=== PATIENT | female | born 1960 | race Caucasian/White ===

== ENCOUNTER 2020-02-19 09:01 | Outpatient (REF) | payer BC, SELFPAY ==
[2020-02-19 21:31] LABS: Hemoglobin A1C 5.7 % (3.8-5.6)
[2020-02-19 21:41] LABS: Anion Gap 10.6 mmol/L (3-11); BUN 17 mg/dL (7-18); CO2 26.4 mmol/L (21.0-32.0); CREATININE 0.79 mg/dL (0.55-1.02); Calcium 9.2 mg/dL (8.5-10.1); Calculated LDL 77 mg/dL (<100); Chloride 105 mmol/L (98-107); Cholesterol 155 mg/dL (<200); Glucose 105 mg/dL (74-106); HDL Cholesterol 54 mg/dL (40-60); Potassium 4.1 mmol/L (3.5-5.1); Sodium 142 mmol/L (136-145); Triglyceride 123 mg/dL (<150)
== END 2020-02-19 09:21 ==
LOC: NCHCN 09:01
PROVIDERS: PCP Family Medicine; Visit Provider Family Medicine
DX: Z00.00 Encounter for general adult medical examination without abnormal findings (principal); R03.0 Elevated blood-pressure reading, without diagnosis of hypertension; M17.0 Bilateral primary osteoarthritis of knee; H92.02 Otalgia, left ear
CPT/HCPCS: 80048; 80061; 83036

== ENCOUNTER 2022-07-19 17:02 | Outpatient (REF) | payer BC, SELFPAY ==
--- NOTE | 2022-07-19 16:00 | PAPFT_PTH ---
PATIENT: Sujey Lockett LOC: [facility]#:[id number] AGE/SX: 61/F ROOM: RE07/19/[address]: Adrianne Barger : 1960 BED: DIS: 07/19/2022 SPEC #: [id number] RECD: 07/20/22 12:49 STATUS: GREGORY REQ #: [id number] JAKOB: 07/19/22 16:[address]: Adrianne Barger DEPT: [facility] Cytology RECD BY: Lien Benitez Tissues: 1 - CX/ENDOCX FOR PAP SMEARS Procedures: PAP THIN PREP/UVM Screening HPV DNA PROBE Comments: [id number]
== END 2022-07-19 17:03 | disposition home or self-care (01) ==
LOC: NCHCN 17:02
PROVIDERS: PCP Family Medicine; Visit Provider Family Medicine
DX: Z12.4 Encounter for screening for malignant neoplasm of cervix (principal); Z00.00 Encounter for general adult medical examination without abnormal findings; Z11.51 Encounter for screening for human papillomavirus (HPV)
CPT/HCPCS: 88142; 87624

== ENCOUNTER 2023-05-15 18:45 | Outpatient (REF) | payer BC, SELFPAY ==
--- OUTSIDE RECORDS SUMMARY | 2023-05-15 18:47 | XMS_ITS | CCD ---
Author Name Unknown Address [address] [place] [address] [id number] Organization Unknown Address [address] [place] [address] [id number] Care Team Providers Care Forklift Picker Name Role Phone JACQUIE TIDWELL Attending Physician [phone] JACQUIE TIDWELL Rounding (Secondary) Physician [phone] Vital Signs Unknown or Not Available. Allergies Allergy Code Allergy Type Reaction Status SHELLFISH 0 Food allergy NAUSEA/VOMITING ; JUST MUSCLES Active No Known Drug Allergies 0 No known drug allergies Active Procedures Unknown or Not Available. History of Immunizations Unknown or Not Available. Problems Unknown or Not Available. Results Unknown or Not Available. Active Medications Unknown or Not Available. Medications Administered During Visit Unknown or Not Available. Encounters Encounter Diagnosis Diagnosis Code Start Date Artificial knee joint present [id number] Social History Smoking Status Code Start Date End Date Never smoker [id number] Patient Decision Aids Unknown or Not Available. Discharge Instructions You were admitted to [facility] on 07/19/2021 14:05 with a principal diagnosis of Presence of left artificial knee joint You were discharged from [facility] on 07/19/2021 00:00 Should you have any questions prior to discharge, please contact a member of your healthcare team. If you have left the hospital and have any questions, please contact your primary care physician. Chief Complaint and Reason For Visit Unknown or Not Available. Function Status Unknown or Not Available. Plan of Care Unknown or Not Available. Referral/Transition of Care Unknown or Not Available.
--- OUTSIDE RECORDS SUMMARY | 2023-05-15 18:47 | XMS_ITS | CCD ---
Author Name Unknown Address [address] [place] [address] [phone] Organization Unknown Address [address] [place] [address] [phone] Care Team Providers Care Injection Molding Machine Operator Name Role Phone MICHELLE GREENBERG Attending Physician [phone] Vital Signs Unknown or Not Available. Allergies Allergy Code Allergy Type Reaction Status SHELLFISH 0 Food allergy NAUSEA/VOMITING ; JUST MUSCLES Active No Known Drug Allergies 0 No known drug allergies Active Procedures Unknown or Not Available. History of Immunizations Unknown or Not Available. Problems Unknown or Not Available. Results BUN (UREA NITROGEN)* - Colle ct Date/Time: 03/26/2022 11:38 Test Name Code Test Result Test Units Test Ref Rang e BUN 3094-0 17 mg/dL L=6 H=25 CREATININE SERUM - Collect D ate/Time: 03/26/2022 11:38 Test Name Code Test Result Test Units Test Ref Rang e CREATININE 2160-0 0.66 mg/dL L=0.51 H=0.95 AGE 61 years eGFR (non-Afr.Amer.) 30480-9 91 mL/min eGFR (Afr-Palauan) 50907-0 111 mL/min Active Medications Unknown or Not Available. Medications Administered During Visit Unknown or Not Available. Encounters Encounter Diagnosis Diagnosis Code Start Date COVID-19 [id number] 03/26/2022 Social History Smoking Status Code Start Date End Date Never smoker [id number] Patient Decision Aids Unknown or Not Available. Discharge Instructions You were admitted to [facility] on 03/26/2022 10:31 with a principal diagnosis of COVID-19 You had the following tests done:BUN (UREA NITROGEN)*CREATININE SERUM You were discharged from [facility] on 03/26/2022 10:31 Should you have any questions prior to [...]
[2023-05-15 21:55] LABS: Hemoglobin A1C 5.7 % (<5.7)
[2023-05-15 22:12] LABS: Anion Gap 6.5 mmol/L (3-11); BUN 25 mg/dL (7-18); CO2 29.5 mmol/L (21.0-32.0); CREATININE 0.7 mg/dL (0.55-1.02); Calcium 9.7 mg/dL (8.5-10.1); Calculated LDL 93 mg/dL (<100); Chloride 102 mmol/L (98-107); Cholesterol 148 mg/dL (<200); Estimated GFR 98.34 (mL/min/1.73m2); Glucose 108 mg/dL (74-106); HDL Cholesterol 43 mg/dL (40-60); Potassium 3.8 mmol/L (3.5-5.1); Sodium 138 mmol/L (136-145); Triglyceride 64 mg/dL (<150)
== END 2023-05-15 18:46 | disposition home or self-care (01) ==
LOC: NCHCN 18:45
PROVIDERS: PCP Family Medicine; Visit Provider Registered Nurse
DX: Z00.00 Encounter for general adult medical examination without abnormal findings (principal); I10 Essential (primary) hypertension; Z82.49 Family history of ischemic heart disease and other diseases of the circulatory system; R73.09 Other abnormal glucose
CPT/HCPCS: 80048; 80061; 83036

== ENCOUNTER 2023-06-19 21:49 | Outpatient (REF) | payer BC, SELFPAY ==
[2023-06-19 21:55] LABS: Anion Gap 6.8 mmol/L (3-11); BUN 25 mg/dL (7-18); CO2 28.2 mmol/L (21.0-32.0); CREATININE 0.7 mg/dL (0.55-1.02); Calcium 9.6 mg/dL (8.5-10.1); Chloride 106 mmol/L (98-107); Estimated GFR 98.34 (mL/min/1.73m2); Glucose 91 mg/dL (74-106); Potassium 4.5 mmol/L (3.5-5.1); Sodium 141 mmol/L (136-145)
== END 2023-06-19 21:50 | disposition home or self-care (01) ==
LOC: NCHCN 21:49
PROVIDERS: PCP Family Medicine; Visit Provider Registered Nurse
DX: I10 Essential (primary) hypertension (principal)
CPT/HCPCS: 80048

== ENCOUNTER 2024-05-16 18:46 | Outpatient (REF) | payer BC, SELFPAY ==
[2024-05-16 22:32] LABS: Hemoglobin A1C 5.8 % (<5.7)
[2024-05-16 23:05] LABS: Anion Gap 7.7 mmol/L (3-11); BUN 21 mg/dL (7-18); CO2 28.3 mmol/L (21.0-32.0); CREATININE 0.7 mg/dL (0.55-1.02); Chloride 104 mmol/L (98-107); Estimated GFR 97.72 (mL/min/1.73m2); Glucose 95 mg/dL (74-106); Sodium 140 mmol/L (136-145)
== END 2024-05-16 18:47 | disposition home or self-care (01) ==
LOC: NCHCN 18:46
PROVIDERS: PCP Family Medicine; Visit Provider Family Medicine
DX: I10 Essential (primary) hypertension (principal); Z13.1 Encounter for screening for diabetes mellitus
CPT/HCPCS: 80048; 83036

== ENCOUNTER 2024-07-18 17:16 | Outpatient (REF) | payer BC, SELFPAY ==
[2024-07-18 21:25] LABS: HCT 40.9 % (36.0-46.0); HGB 13.6 g/dL (11.2-15.7); MCH 28.8 pg (27.0-33.0); MCHC 33.3 % (32.0-36.0); MCV 87 fL (80-95); MPV 9.8 fL (8.0-11.0); Platelet Count 344 10^3/uL (130-400); RBC 4.73 10^6/uL (3.93-5.22); RDW 12.7 % (11.7-14.6); RDW-SD 40.1 fL; WBC 8.14 10^3/uL (4.4-10.8)
[2024-07-18 22:49] LABS: Folate 13.2 ng/mL (8.6-20.0); Vitamin B12 283 pg/mL (193-986)
== END 2024-07-18 17:17 | disposition home or self-care (01) ==
LOC: NCHCN 17:16
PROVIDERS: PCP Family Medicine; Visit Provider Family Medicine
DX: G60.9 Hereditary and idiopathic neuropathy, unspecified (principal)
CPT/HCPCS: 85027; 82607; 82746

== ENCOUNTER 2025-03-17 12:21 | Day surgery (SDC) | payer BC, SELFPAY ==
--- NOTE | 2025-03-16 14:02 | W.PM.DSUDISC ---
Date of service: 03/17/25 Discharge Plan Disposition Patient Disposition: Home Condition: Good Discharge Details Reason For Visit: screening colonoscopy Attending Provider: Ronal Georges Primary Care Provider: Adrianne Barger Home Meds and New Rx's Prescriptions: No Action bisacodyl [Dulcolax (bisacodyl)] 5 mg tablet,delayed release (DR/EC) 5 mg PO ONCE Qty: 4 0RF Rx Instructions: Take per colonoscopy instructions provided by ordering providers office polyethylene glycol 3350 17 gram/dose powder 17 g PO ONCE Qty: 238 0RF Rx Instructions: Take per colonoscopy instructions provided by ordering providers office amlodipine 10 mg tablet 10 mg PO DAILY fluticasone propionate 50 mcg/actuation blister with device 2 inh inhalation BID olmesartan 20 mg tablet 20 mg PO DAILY Discharge Instructions Additional Instructions: 1. If tolerated, consume a soft, low fiber diet for 1-2 days. 2[address] Do not drive, drink alcohol, operate machinery, make critical decisions, or do activities that require coordination or balance for 24 hours. 3. Because air was put into your colon during the procedure, expelling air from your rectum (passing gas or farting) is normal. 4. You may not have a bowel movement for 1-3 days because of the colonoscopy prep. This is normal. 5. Go directly to the emergency room if you notice any of the following: Develop chills (warm to touch), or if you have a thermometer and your temperature is above 101 Difficulty breathing or difficultly swallowing Persistent vomiting Severe abdominal pain, other than gas cramps Severe chest pain Black, tarry stools Any bleeding ? exceeding one tablespoon 6. Call your physician if the site where your intravenous was started becomes red, swollen, painful, and warm to touch. 7. Your physician has reviewed your pre-procedure medications. Please continue to take those medications as previously ordered. You will be given specific information/education regarding any changes to your medications before leaving. Activity:: Activity as Tolerated Diet:: As Tolerated DS: Diagnosis Discharge Diagnosis (1) Encounter for screening colonoscopy: Status: Acute
--- NOTE | 2025-03-16 14:04 | W.COLOREPORT ---
Date of service: 03/17/25 Colonoscopy Report Date of procedure: 03/17/25 Pre-op diagnosis general: screening colonoscopy Procedure: colonoscopy Surgeon: Ronal Georges Anesthesia Type: General:No Airway Complications: None Disposition: same day Indications: Sujey is a 64 year old woman who needs her next screening colonoscopy Prep: Miralax/Dulcolax
== END 2025-03-17 12:22 | disposition home or self-care (01) ==
LOC: SUR 04-23 12:21
PROVIDERS: PCP Family Medicine; Visit Provider Surgery
DX: Z53.9 Procedure and treatment not carried out, unspecified reason (principal)

== ENCOUNTER 2025-07-10 12:20 | Outpatient (REF) | payer BC, SELFPAY ==
[2025-07-10 15:33] LABS: Anion Gap 7.6 mmol/L (3-11); BUN 20 mg/dL (9-23); CO2 26.4 mmol/L (20.0-31.0); Calcium 9.2 mg/dL (8.3-10.6); Chloride 107 mmol/L (98-107); Glucose 95 mg/dL (74-106); Potassium 4.1 mmol/L (3.5-5.1); Sodium 141 mmol/L (136-145)
[2025-07-10 15:38] LABS: Vitamin B12 345 pg/mL (211-911)
[2025-07-10 15:42] LABS: Hemoglobin A1C 5.7 % (<5.7)
== END 2025-07-10 12:21 | disposition home or self-care (01) ==
LOC: NCHCN 12:20
PROVIDERS: PCP Family Medicine; Visit Provider Family Medicine
DX: G60.9 Hereditary and idiopathic neuropathy, unspecified (principal)
CPT/HCPCS: 80048; 82607; 83036